=== PATIENT | female | born 1930 | race Caucasian/White ===

== ENCOUNTER 2017-11-13 05:14 | Inpatient (IN) | payer MEDICARE, MEDICAID ==
[~2017-11-13] VITALS: Ht 160 cm; Wt 71.7 kg
[~2017-11-13 05:14] MED LIST: ASPI-605 PO; ATOR20TA PO; VALS1TAB4 PO
[2017-11-13] MEDS ORDERED: NITROGLYCERIN PACKET 1 GM PACKET TD ONE (05:30)
[2017-11-13] MEDS ORDERED: ASPIRIN 81 MG TAB.CHEW PO ONE (05:30)
[2017-11-13] MEDS ORDERED: NITROGLYCERIN PACKET 1 GM PACKET ONE (05:33)
[2017-11-13] MEDS ORDERED: ASPIRIN 81 MG TAB.CHEW ONE (05:33)
[2017-11-13 05:42] LABS: HEMATOCRIT 40 % (33-45); HEMOGLOBIN 13.4 g/dL (11.5-14.8); MEAN CORPUSCULAR HEMOGLOBIN 32 PG (26.0-33.0); MEAN CORPUSCULAR HGB CONC 33 g/dl (31.0-36.0); MEAN CORPUSCULAR VOLUME 95 fL (82-100); PLATELET COUNT (AUTO) 173 /CMM (150-450); RDW COEFFICIENT OF VARIATION 15.2 (11.5-15.0); RED BLOOD CELL COUNT(AUTO) 4.24 MIL/uL (4.0-5.2)
[2017-11-13 05:56] LABS: CALCIUM, SERUM 9.6 mg/dL (8.5-10.1); CARBON DIOXIDE 28 mmol/L (21-32); CHLORIDE 102 mmol/L (98-107); CREATININE 1.1 mg/dL (0.6-1.3); GLUCOSE 121 mg/dL (74-106); POTASSIUM 3.7 mmol/L (3.5-5.1); SODIUM SERUM 139 mmol/L (136-145); UREA NITROGEN, BLOOD 28 mg/dL (7-18)
[2017-11-13 06:00] LABS: EOSINOPHILS % (MANUAL) 4 % (0-4); LYMPHOCYTES % (MANUAL) 38 % (16-48); MONOCYTES % (MANUAL) 7 % (0-11.0); NEUTROPHILS % (MANUAL) 51 (42-76)
[2017-11-13] MEDS ORDERED: IV NS 0.9% 500 ML BAG IV ONE (06:00)
[2017-11-13 06:03] LABS: TROPONIN I 0.376 ng/mL (0.00-0.056)
[2017-11-13 06:09] LABS: ALANINE AMINOTRANSFERASE 25 U/L (12-78); ALBUMIN 3.2 g/dL (3.4-5.0); ALKALINE PHOSPHATASE 65 U/L (46-116); ASPARTATE AMINOTRANSFERASE 18 U/L (15-37); B-TYPE NATRIURETIC PEPTIDE 1048 PG/ML (0-125); BILIRUBIN,DIRECT 0.1 mg/dL (0.0-0.2); BILIRUBIN,TOTAL 0.3 mg/dL (0.2-1.0)
[2017-11-13] MEDS ORDERED: CT SWABBABLE VALVE TRANS SET 1 EA INFUS.SET MC ONE (06:36)
[2017-11-13] MEDS ORDERED: IOHEXOL-350 100 ML VIAL IV ONE (06:36)
[2017-11-13] MEDS ORDERED: IV NS 0.9% 250 ML IV ONE (06:36)
[2017-11-13] MEDS ORDERED: ALLO100T PO (07:48)
[2017-11-13] MEDS ORDERED: MAGNESIUM HYDROXIDE 30 ML UDC PO PRN (09:00)
[2017-11-13] MEDS ORDERED: MAG HYDROX/AL HYDROX/SIMETH 30 ML UDC PO PRN (09:00)
[2017-11-13] MEDS ORDERED: ALLOPURINOL 100 MG TABLET PO SCH (09:00)
[2017-11-13] MEDS ORDERED: HYDROCHLOROTHIAZIDE 25 MG TABLET PO SCH (09:00)
[2017-11-13] MEDS ORDERED: NITROGLYCERIN 0.4 MG/TAB BOTTLE SL ONE (09:00)
[2017-11-13] MEDS ORDERED: ONDANSETRON HCL/PF 4 MG/2 ML VIAL IVP PRN (09:00)
[2017-11-13] MEDS ORDERED: HYDROCODONE/APAP 5/325MG 1 EACH TABLET PO PRN (09:00)
[2017-11-13] MEDS ORDERED: ACETAMINOPHEN 325 MG TABLET PO PRN (09:00)
[2017-11-13] MEDS ORDERED: VALSARTAN 80 MG TABLET PO SCH (09:00)
[2017-11-13] MEDS ORDERED: ASPIRIN 81 MG TAB.CHEW PO SCH (09:00)
[2017-11-13] MEDS ORDERED: MORPHINE SULFATE INJ 4 MG/ML DISP.SYRIN IV PRN (12:00)
[2017-11-13] MEDS ORDERED: ENOXAPARIN SODIUM 80 MG/0.8 ML DISP.SYRIN SQ ONE (15:00)
[2017-11-13 16:00] VITALS: BP 112/67
[2017-11-13 20:00] VITALS: BP 104/63
[2017-11-13] MEDS: METOPROLOL TARTRATE 25 MG TABLET PO SCH (21:00)
[2017-11-13] MEDS ORDERED: ATORVASTATIN 10 MG TABLET PO SCH (22:00)
[2017-11-13] MEDS ORDERED: TEMAZEPAM 15 MG CAPSULE PO PRN (22:00)
[2017-11-14] VITALS: BP 110/67
[2017-11-14 04:00] VITALS: BP 101/50
[2017-11-14 07:01] LABS: BASOPHILS % (AUTO) 0.4 % (0.0-2.0); EOSINOPHILS # (AUTO) 0.2 /CMM (0.0-0.7); EOSINOPHILS % (AUTO) 3.5 % (0.0-6.0); HEMATOCRIT 33 % (33-45); HEMOGLOBIN 11.2 g/dL (11.5-14.8); LYMPHOCYTES # (AUTO) 1.9 /CMM (0.8-4.8); LYMPHOCYTES % (AUTO) 38.1 % (20.0-44.0); MEAN CORPUSCULAR HEMOGLOBIN 32 PG (26.0-33.0); MEAN CORPUSCULAR HGB CONC 34 g/dl (31.0-36.0); MEAN CORPUSCULAR VOLUME 95 fL (82-100); MONOCYTES # (AUTO) 0.4 /CMM (0.1-1.30); MONOCYTES % (AUTO) 8.2 % (2.0-12.0); NEUTROPHILS # (AUTO) 2.5 /CMM (1.8-8.9); NEUTROPHILS % (AUTO) 49.8 % (43.0-81.0); PLATELET COUNT (AUTO) 157 /CMM (150-450); RDW COEFFICIENT OF VARIATION 14.9 (11.5-15.0); RED BLOOD CELL COUNT(AUTO) 3.48 MIL/uL (4.0-5.2); WHITE BLOOD COUNT (AUTO) 5.1 K/uL (4.3-11.0)
[2017-11-14 07:17] LABS: CALCIUM, SERUM 8.6 mg/dL (8.5-10.1); CARBON DIOXIDE 29 mmol/L (21-32); CHLORIDE 105 mmol/L (98-107); CREATININE 0.9 mg/dL (0.6-1.3); GLUCOSE 95 mg/dL (74-106); PHOSPHORUS 3.8 mg/dL (2.5-4.9); SODIUM SERUM 140 mmol/L (136-145); UREA NITROGEN, BLOOD 23 mg/dL (7-18)
[2017-11-14 07:22] LABS: CHOLESTEROL 135 mg/dL (<200); HDL CHOLESTEROL 45 mg/dL (40-60); LDL 75 mg/dL (0-99); THYROID STIMULATING HORMONE 3.365 uIU/mL (0.358-3.74); TRIGLYCERIDES 94 mg/dL (30-150)
[2017-11-14] MEDS ORDERED: PANTOPRAZOLE 40 MG TABLET.DR PO SCH (07:30)
[2017-11-14 08:00] VITALS: BP 121/74
[2017-11-14] MEDS ORDERED: ENOXAPARIN SODIUM 40 MG/0.4 ML DISP.SYRIN SQ SCH (09:00)
[2017-11-14] MEDS ORDERED: VALSARTAN 80 MG TABLET PO SCH (09:00)
[2017-11-14] MEDS: METOPROLOL TARTRATE 25 MG TABLET PO SCH (09:07)
[2017-11-14 09:08] VITALS: BP 133/68
[2017-11-14 09:55] LABS: THYROID STIMULATING HORMONE 3.207 uIU/mL (0.358-3.74)
[2017-11-15 14:20] LABS: *SPE ALBUMIN 3.1 g/dL (2.9-4.4); *SPE ALPHA-1-GLOBULIN 0.3 g/dL (0.0-0.4); *SPE ALPHA-2-GLOBULIN 0.7 g/dL (0.4-1.0); *SPE GLOBULIN, TOTAL 3.1 g/dL (2.2-3.9); *SPE M-SPIKE 0.5 g/dL (Not Observed); *SPEGAMMA GLOBULIN 1.1 g/dL (0.4-1.8)
== END 2017-11-14 13:31 | disposition home or self-care (01) | DRG 280 ==
LOC: ER 05:15 → TELE 11:23 → MED 11-14 08:56
PROVIDERS: ADMIT Nurse Practitioner Acute Care; ATTEND Nurse Practitioner Acute Care
DX: I21.4 Non-ST elevation (NSTEMI) myocardial infarction (principal); I50.33 Acute on chronic diastolic (congestive) heart failure; E11.65 Type 2 diabetes mellitus with hyperglycemia; I27.20 Pulmonary hypertension, unspecified; I11.0 Hypertensive heart disease with heart failure; I35.0 Nonrheumatic aortic (valve) stenosis; Z79.82 Long term (current) use of aspirin; Z79.899 Other long term (current) drug therapy; E78.5 Hyperlipidemia, unspecified; M10.9 Gout, unspecified; K27.9 Peptic ulcer, site unspecified, unspecified as acute or chronic, without hemorrhage or perforation; K21.9 Gastro-esophageal reflux disease without esophagitis; I70.0 Atherosclerosis of aorta; K44.9 Diaphragmatic hernia without obstruction or gangrene; J43.9 Emphysema, unspecified; I48.0 Paroxysmal atrial fibrillation; R91.1 Solitary pulmonary nodule; K57.30 Diverticulosis of large intestine without perforation or abscess without bleeding; E66.9 Obesity, unspecified
CPT/HCPCS: 36415; 71045-TC; 80048-TC; 80061-TC; 80076-TC; 82728-TC; 83540-TC; 83735-TC; 83880; 84100-TC; 84155; 84165; 84439-TC; 84443-TC; 84484-TC; 85025-TC; 87081-TC; A4606; J1650; J7040; J7050; Q9967; Z7610

== ENCOUNTER 2019-06-25 11:29 | Emergency (ER) | payer MEDICARE, MEDICAID ==
[~2019-06-25] VITALS: Ht 167.6 cm; Wt 87.5 kg
[~2019-06-25 11:29] MED LIST changes: +ALLO100T PO
--- NOTE | 2019-06-25 11:36 | NUR ---
"BIB FAMILY, DIARRHEA X 5 DAYS, TOOK IMODIUM W/ MINIMAL RELIEF" pt aaox4, -sob, nad noted, vss, pt on monitor, pending md gibson
[2019-06-25 11:52] LABS: BASOPHILS % (AUTO) 0.4 % (0.0-2.0); EOSINOPHILS % (AUTO) 1.2 % (0.0-6.0); HEMATOCRIT 37 % (33-45); LYMPHOCYTES # (AUTO) 1.1 /CMM (0.8-4.8); LYMPHOCYTES % (AUTO) 21.5 % (20.0-44.0); MEAN CORPUSCULAR HGB CONC 33 g/dl (31.0-36.0); MEAN CORPUSCULAR VOLUME 100 fL (82-100); MONOCYTES # (AUTO) 0.7 /CMM (0.1-1.30); NEUTROPHILS # (AUTO) 3.4 /CMM (1.8-8.9); NEUTROPHILS % (AUTO) 63.9 % (43.0-81.0); PLATELET COUNT (AUTO) 207 /CMM (150-450); RED BLOOD CELL COUNT(AUTO) 3.65 MIL/uL (4.0-5.2); WHITE BLOOD COUNT (AUTO) 5.2 K/uL (4.3-11.0)
--- NOTE | 2019-06-25 11:53 | NUR ---
urine collected and sent to lab
[2019-06-25 11:58] LABS: APPEARANCE,URINE Clear (CLEAR); BILIRUBIN,URINE SMALL (NEGATIVE); BLOOD, URINE Negative Ery/uL (NEGATIVE); COLOR,URINE Yellow (YELLOW); CREATININE 1.2 mg/dL (0.6-1.3); KETONES,URINE Negative (NEGATIVE); LEUKOCYTE ESTERASE ,URINE Small (NEGATIVE); NITRITE, URINE Negative (NEGATIVE); POTASSIUM 3.8 mmol/L (3.5-5.1); PROTEIN,URINE Trace mg/dl (NEGATIVE); UGLUCOSE Negative (NEGATIVE); UROBILINOGEN,URINE 0.2 EU/dL (0.2)
[2019-06-25 12:00] VITALS: BP 121/60
[2019-06-25 12:02] LABS: BACTERIA,URINE Moderate /HPF (None Seen); RBC,URINE 0-2 /HPF (0-2); SQUAMOUS EPITHELIAL CELL,UR Few /HPF (None Seen)
[2019-06-25 12:04] LABS: ALBUMIN 3.3 g/dL (3.4-5.0); BILIRUBIN,DIRECT 0.1 mg/dL (0.0-0.2); BILIRUBIN,TOTAL 0.5 mg/dL (0.2-1.0); TOTAL PROTEIN, SERUM 7.5 g/dL (6.4-8.2)
--- NOTE | 2019-06-25 12:38 | NUR ---
Patient discharged to home in stable condition. Written and verbal after care instructions given. Patient verbalizes understanding of instruction.
== END 2019-06-25 12:40 | disposition home or self-care (01) ==
LOC: ER 11:33
DX: R19.7 Diarrhea, unspecified (principal); I10 Essential (primary) hypertension; Z95.818 Presence of other cardiac implants and grafts; Z79.82 Long term (current) use of aspirin; Z79.899 Other long term (current) drug therapy
CPT/HCPCS: 36415; 80048-TC; 80076-TC; 81000-TC; 85025-TC; 87086-TC

== ENCOUNTER 2020-11-02 21:24 | Inpatient (IN) | payer MEDICARE, OTHER ==
[~2020-11-02] VITALS: Ht 167.6 cm; Wt 94.0 kg
[2020-11-02 21:50] LABS: BASOPHILS % (AUTO) 0.6 % (0.0-2.0); EOSINOPHILS % (AUTO) 1.9 % (0.0-6.0); HEMATOCRIT 35 % (33-45); HEMOGLOBIN 11.3 g/dL (11.5-14.8); LYMPHOCYTES # (AUTO) 1.5 /CMM (0.8-4.8); LYMPHOCYTES % (AUTO) 21.1 % (20.0-44.0); MEAN CORPUSCULAR HGB CONC 32 g/dl (31.0-36.0); MEAN CORPUSCULAR VOLUME 99 fL (82-100); MONOCYTES # (AUTO) 0.7 /CMM (0.1-1.30); MONOCYTES % (AUTO) 9.5 % (2.0-12.0); NEUTROPHILS # (AUTO) 4.8 /CMM (1.8-8.9); NEUTROPHILS % (AUTO) 66.9 % (43.0-81.0); PLATELET COUNT (AUTO) 224 /CMM (150-450); RED BLOOD CELL COUNT(AUTO) 3.52 MIL/uL (4.0-5.2); WHITE BLOOD COUNT (AUTO) 7.1 K/uL (4.3-11.0)
--- NOTE | 2020-11-02 21:52 | NUR ---
BIBRA FROM HOME TO ER BED 7. AAOX4. NOT IN RESP DISTRESS. BROUGHT IN FOR R HIP RADIATING DOWN TO THIGH AND R KNEE PAIN S/P TRIP AND FALL. PT IS NOTED WITH +SHORTENING AND +EXTERNAL ROTATION ON THE RIGHT LEG. BILAT PEDAL PULSES ARE APPRECIATED. COLOR AND TEMP IS EQUAL ON BILAT LOWER EXT. AWAITING MD FOR EVAL. ORDERS RECEIVED, NOTED AND CARRIED OUT. IV LINE ESTABLISHED IN THE L AC 18G. BLOOD DRAWN AND SENT TO LAB
[2020-11-02 22:02] LABS: CALCIUM, SERUM 9.7 mg/dL (8.5-10.1); CARBON DIOXIDE 28 mmol/L (21-32); CHLORIDE 106 mmol/L (98-107); CREATININE 1.4 mg/dL (0.6-1.3); GLUCOSE 96 mg/dL (74-106); POTASSIUM 3.9 mmol/L (3.5-5.1); SODIUM SERUM 143 mmol/L (136-145); UREA NITROGEN, BLOOD 40 mg/dL (7-18)
--- NOTE | 2020-11-02 22:33 | NUR ---
called conductor/brakeman [facility] working foreman Lori [phone], Dr. lowery is curerntly speaking to dr. mclain regarding plan of care.
--- NOTE | 2020-11-02 23:03 | NUR ---
called [facility] for panel admission
[2020-11-02] MEDS ORDERED: MAG HYDROX/AL HYDROX/SIMETH 30 ML UDC PO PRN (23:30)
[2020-11-02] MEDS ORDERED: DOCUSATE SODIUM 100 MG CAPSULE PO PRN (23:30)
[2020-11-02] MEDS ORDERED: ONDANSETRON HCL/PF 4 MG/2 ML VIAL IVP PRN (23:30)
[2020-11-02] MEDS ORDERED: MORPHINE SULFATE INJ 2 MG/ML DISP.SYRIN IV PRN ×2 (23:30)
[2020-11-02] MEDS ORDERED: NITROGLYCERIN 0.4 MG/TAB BOTTLE SL PRN (23:30)
[2020-11-02] MEDS ORDERED: MORPHINE SULFATE INJ 2 MG/ML DISP.SYRIN ONE (23:32)
[2020-11-02] MEDS ORDERED: FURO-145 PO (23:50)
[2020-11-02] MEDS ORDERED: OLME1TAB16 PO (23:50)
[2020-11-02] MEDS ORDERED: METF-440 PO (23:50)
[2020-11-02] MEDS ORDERED: TEMA15CA PO (23:50)
--- NOTE | 2020-11-02 23:50 | NUR ---
REPORT GIVEN TO MATY MAYS FOR MAYO
--- NOTE | 2020-11-03 00:18 | NUR ---
per lab covid negative
--- NOTE | 2020-11-03 00:40 | NUR ---
SPINNER BOX ADMITTING NOTES RECEIVED REPORT FROM TABATHA CHARGE NURSE. PATIENT ADMITTED FROM ER, C/C OF RIGHT HIP PAIN. S/P GROUND LEVEL FALL. PATIENT AAOX4; ABLE TO MAKE SOME NEEDS KNOWN; BELARUSIAN SPEAKING. ON O2 2LPM NASAL CANNULA; TOLERATING WELL WITH NO SOB. EXTERNAL TELE MONITOR READS NSR AND HR AT 90. SKIN IS INTACT; NO BRUISING NOTED AT THIS TIME. MAINTAINED ON NPO DIET. IV #22G S/L TO LAC PATENT AND INTACT. ORIENTED PATIENT TO STAFF AND ROOM. ALL BELONGINGS ACCOUNTED FOR AND FILLED OUT BELONGINGS CHECK LIST. GAVE ADA (DAUGHTER) AND GENE (GRANDSON DPOA) UPDATE ON PATIENT. ALL SAFETY MEASURES IN PLACE; BED IN LOWEST LOCKED POSITION; SIDERAILS UPX2; CALL LIGHT WITHIN REACH, BED ALARM ON. PATIENT MEDICALLY STABLE AT THIS TIME.
--- NOTE | 2020-11-03 00:40 | NUR ---
MOVED PT TO 324-1
[2020-11-03 01:01] VITALS: BP 158/86
[2020-11-03] MEDS: PANTOPRAZOLE 40 MG VIAL IV SCH ×2 (01:19→22:29)
[2020-11-03] MEDS: HYDROMORPHONE 1 MG/1 ML DISP.SYRIN IV PRN ×4 (02:16→22:26)
--- NOTE | 2020-11-03 02:46 | NUR ---
HOE RUNNER NOTES - PAIN PATIENT C/O 06/14 RIGHT HIP PAIN. ADMINISTERED DILAUDID 2MG ORDERED. WILL CONTINUE TO MONITOR FOR PAIN.
--- NOTE | 2020-11-03 06:07 | NUR ---
PUBLIC SCHOOL TEACHER NOTES - FC KAREEM CRAFT ORDERED FOR F/C. F/C INSERTED WITH CLEAR YELLOW OUTPUT; PATENT AND INTACT. COLLECTED URINE SPECIMEN AND WAS PUT IN THE FRIDGE FOR UA TEST.
[2020-11-03 06:42] LABS: BASOPHILS % (AUTO) 0.3 % (0.0-2.0); HEMATOCRIT 32 % (33-45); HEMOGLOBIN 10.3 g/dL (11.5-14.8); LYMPHOCYTES # (AUTO) 0.8 /CMM (0.8-4.8); LYMPHOCYTES % (AUTO) 6.6 % (20.0-44.0); MEAN CORPUSCULAR HGB CONC 32 g/dl (31.0-36.0); MEAN CORPUSCULAR VOLUME 98 fL (82-100); MONOCYTES # (AUTO) 0.6 /CMM (0.1-1.30); MONOCYTES % (AUTO) 4.9 % (2.0-12.0); NEUTROPHILS # (AUTO) 10.6 /CMM (1.8-8.9); NEUTROPHILS % (AUTO) 88.2 % (43.0-81.0); PLATELET COUNT (AUTO) 200 /CMM (150-450); RED BLOOD CELL COUNT(AUTO) 3.23 MIL/uL (4.0-5.2)
--- NOTE | 2020-11-03 07:05 | NUR ---
TRANSITION OF CARE SPECIALIST CLOSING NOTES PATIENT AAOX4; ABLE TO MAKE SOME NEEDS KNOWN; FILIPINO SPEAKING. ON O2 3LPM NASAL CANNULA; TOLERATING WELL WITH NO SOB. EXTERNAL TELE MONITOR READS NSR AND HR AT 90'S. SKIN IS INTACT; NO BRUISING NOTED AT THIS TIME. MAINTAINED ON NPO DIET. IV #22G S/L TO LAC PATENT AND INTACT. F/C DRAINING CLEAR YELLOW URINE; PATENT AND INTACT. ALL SAFETY MEASURES IN PLACE; BED IN LOWEST LOCKED POSITION; SIDERAILS UPX2; CALL LIGHT WITHIN REACH, BED ALARM ON. PATIENT MEDICALLY STABLE AT THIS TIME. WILL ENDORSE MAYO TO ONCOMING MORNING RN.
[2020-11-03 07:32] LABS: CHOLESTEROL 133 mg/dL (<200); HDL CHOLESTEROL 57 mg/dL (40-60); LDL 65 mg/dL (0-99); TRIGLYCERIDES 48 mg/dL (30-150)
[2020-11-03 07:51] LABS: ALANINE AMINOTRANSFERASE 21 U/L (12-78); ALBUMIN 2.9 g/dL (3.4-5.0); ALKALINE PHOSPHATASE 75 U/L (46-116); ASPARTATE AMINOTRANSFERASE 21 U/L (15-37); BILIRUBIN,TOTAL 0.3 mg/dL (0.2-1.0); CALCIUM, SERUM 9.1 mg/dL (8.5-10.1); CARBON DIOXIDE 25 mmol/L (21-32); CHLORIDE 108 mmol/L (98-107); CREATININE 1.3 mg/dL (0.6-1.3); GLUCOSE 129 mg/dL (74-106); MAGNESIUM 1.8 mg/dL (1.8-2.4); PHOSPHORUS 3.4 mg/dL (2.5-4.9); POTASSIUM 4.7 mmol/L (3.5-5.1); SODIUM SERUM 142 mmol/L (136-145); TOTAL PROTEIN, SERUM 6.8 g/dL (6.4-8.2); UREA NITROGEN, BLOOD 36 mg/dL (7-18)
--- NOTE | 2020-11-03 07:54 | NUR ---
SUBWAREHOUSE SUPERVISOR OPENING NOTE PATIENT IS IN BED RESTING. PATIENT IS IN NO ACUTE DISTRESS. PATIENT IS ON 3L OXYGEN NC, TOLERATING WELL. NO SOB NOTED. PATIENT IS ON FLUID RESTRICTION 1.5L. PATIENT IS ON TELE MONITOR READING SR BBB 73. SAFETY PRECAUTIONS ARE IN PLACE, BED IN THE LOWEST POSITION, WITH SIDE RAILS ON, CALL LIGHT WITHIN REACH. WILL CONTINUE TO MONITOR PATIENT CLOSELY THROUGH OUT THE SHIFT.
[2020-11-03 08:19] VITALS: BP 106/69
[2020-11-03 08:42] LABS: IRON, SERUM 28 ug/dl (50-175); TOTAL IRON BINDING CAPACITY 235 ug/dl (250-450)
[2020-11-03 08:55] LABS: FERRITIN 75 ng/mL (8-388)
[2020-11-03] MEDS: ASPIRIN EC 81 MG TABLET.DR PO SCH (09:00)
[2020-11-03] MEDS ORDERED: HYDROCHLOROTHIAZIDE 25 MG TABLET PO SCH (09:00)
[2020-11-03] MEDS: ALLOPURINOL 100 MG TABLET PO SCH (09:00)
[2020-11-03] MEDS: VALSARTAN 80 MG TABLET PO SCH (09:00)
[2020-11-03] MEDS ORDERED: ASPIRIN 81 MG TAB.CHEW PO SCH (09:00)
[2020-11-03] MEDS: METFORMIN 500 MG TABLET PO SCH ×2 (09:00→17:00)
[2020-11-03] MEDS: ATORVASTATIN 10 MG TABLET PO SCH (09:00)
[2020-11-03] MEDS: IV NS 0.9% 1,000 ML IV PRN (10:29)
[2020-11-03 12:12] VITALS: BP 100/52
[2020-11-03] MEDS ORDERED: CHOL100062 PO (14:13)
[2020-11-03] MEDS ORDERED: SPIR25TA6 PO (14:13)
[2020-11-03] MEDS ORDERED: OMEP20CA15 PO (14:13)
[2020-11-03 16:18] LABS: BILIRUBIN,URINE NEGATIVE (NEGATIVE); COLOR,URINE YELLOW (YELLOW); LEUKOCYTE ESTERASE ,URINE NEGATIVE (NEGATIVE); NITRITE, URINE NEGATIVE (NEGATIVE); PROTEIN,URINE NEGATIVE (NEGATIVE); UGLUCOSE NEGATIVE (NEGATIVE); UROBILINOGEN,URINE 0.2 EU/dL (0.2)
[2020-11-03 16:27] VITALS: BP 128/57
--- NOTE | 2020-11-03 17:44 | NUR ---
SUPERVISOR HANGING AND TRIMMING NOTE PATIENTS BLOOD SUGAR IS 86, PATIENT WAS NPO THE WHOLE DAY. METFORMIN WAS NOT ADMINISTERED.
--- NOTE | 2020-11-03 17:45 | NUR ---
SORT SUPERVISOR NOTE PATIENT HAD AN ORTHOPEDIC CONSULTATION. PER PATIENT HAS A FEMORAL NECK HIP FRACTURE, AND WILL NEED A PARTIAL HIP REPLACEMENT SURGERY. PATIENT AND PATIENTS FAMILY WANT SURGERY TO BE DONE IN [facility]. DR ÁLVAREZ AND DR. VILLAFUERTE ARE AWARE OF PATIENTS PREFERENCE.
--- NOTE | 2020-11-03 19:35 | NUR ---
RN OPENING NOTES RECEIVED PT IN BED. A/O X4 BENINESE SPEAKING, MINIMAL YI. RN ADVANCED UTILIZED, ABLE TO MAKE NEEDS KNOWN. PT IS ON 3L OF O2 VIA NC, TOLERATING WELL SATURATION 94% AT THIS TIME. NO SOB NO RESP DISTRESS NOTED. ON TELE MONITORING PRESENTS WITH NSR HR OF 85. PT REPORTS PAIN 3/10, TOLERABLE AT THIS TIME. PAIN FROM RIGHT HIP/LEG. VERBALIZED PT WILL REQUEST PAIN MEDICATION WHEN NEEDED. PT IV LINE FLUSHED, NO S/S OF INFILTRATION NOTED. SAFETY MEASURES IN PLACE, HOB ELEVATED. NEEDS ATTENDED. SIDE RAILS UP X2, BED LOCKED IN LOWEST POSITION. CALL LIGHT WITHIN REACH. WILL CONT TO MONITOR CLOSELY.
--- NOTE | 2020-11-03 19:58 | NUR ---
HOGSHEAD OPENER CLOSING NOTE PATIENT IS IN BED RESTING. PATIENT IS IN NO ACUTE DISTRESS. PATIENT IS ON 3L OXYGEN NC, TOLERATING WELL. NO SOB NOTED. PATIENT IS ON FLUID RESTRICTION 1.5L. PATIENT IS ON TELE MONITOR READING SR BBB 77. PATIENT HAS CLARK CATHETER IN PLACE WITH URINE OUTPUT OF 800ML. SAFETY PRECAUTIONS ARE IN PLACE, BED IN THE LOWEST POSITION, WITH SIDE RAILS ON, CALL LIGHT WITHIN REACH. ENDORSE PATIENT TO RING STAMPER NURSE FOR MAYO.
--- NOTE | 2020-11-03 21:44 | NUR ---
REPORT GIVEN TO RAINA RUTLEDGE FOR CONTINUATION OF CARE.
[2020-11-04] VITALS: BP 112/53
[2020-11-04] MEDS: ACETAMINOPHEN 325 MG TABLET PO PRN (00:51)
[2020-11-04 04:00] VITALS: BP 110/56
[2020-11-04 04:34] VITALS: BP 126/48
[2020-11-04] MEDS: HYDROMORPHONE 1 MG/1 ML DISP.SYRIN IV PRN ×5 (06:00→19:48)
[2020-11-04 06:33] LABS: BASOPHILS # (AUTO) 0.1 /CMM (0.0-0.2); BASOPHILS % (AUTO) 0.7 % (0.0-2.0); EOSINOPHILS % (AUTO) 1.5 % (0.0-6.0); HEMATOCRIT 31 % (33-45); HEMOGLOBIN 10.2 g/dL (11.5-14.8); LYMPHOCYTES # (AUTO) 1.2 /CMM (0.8-4.8); LYMPHOCYTES % (AUTO) 11.7 % (20.0-44.0); MEAN CORPUSCULAR HGB CONC 33 g/dl (31.0-36.0); MEAN CORPUSCULAR VOLUME 99 fL (82-100); MONOCYTES # (AUTO) 0.7 /CMM (0.1-1.30); MONOCYTES % (AUTO) 6.9 % (2.0-12.0); NEUTROPHILS # (AUTO) 8.2 /CMM (1.8-8.9); NEUTROPHILS % (AUTO) 79.2 % (43.0-81.0); PLATELET COUNT (AUTO) 170 /CMM (150-450); RED BLOOD CELL COUNT(AUTO) 3.11 MIL/uL (4.0-5.2); WHITE BLOOD COUNT (AUTO) 10.4 K/uL (4.3-11.0)
[2020-11-04 07:26] LABS: ALBUMIN 2.9 g/dL (3.4-5.0); BILIRUBIN,TOTAL 0.8 mg/dL (0.2-1.0); CALCIUM, SERUM 9.2 mg/dL (8.5-10.1); CREATININE 1.3 mg/dL (0.6-1.3); MAGNESIUM 1.9 mg/dL (1.8-2.4); PHOSPHORUS 3.3 mg/dL (2.5-4.9); POTASSIUM 4.6 mmol/L (3.5-5.1); TOTAL PROTEIN, SERUM 7.1 g/dL (6.4-8.2)
--- NOTE | 2020-11-04 07:54 | NUR ---
RESIDENTIAL CONSTRUCTION INSTRUCTOR OPENING NOTE RECEIVED PT IN BED, RESTING, AROUSABLE AND RESPONSIVE. PT IS A/O X 4, TOGOLESE SPEAKING BUT CAN UNDERSTAND BASIC THAI. PT IS ON NASAL CANNULA 3L WITH NO C/O SOB AND NO S/SX OF RESPIRATORY DISTRESS NOTED. PT'S SHEET METAL FABRICATOR SHOWS NSR IN 80'S WITH NO C/O CARDIAC DISTRESS NOTED. IV ACCESS IS ON LEFT AC G#22, PATENT, INTACT AND FLUSHING WELL WITH NO S/SX OF IRRITATION, INFILTRATION OR INFECTION. SAFETY MEASURES IN PLACE: BED IN LOWEST POSITION AND LOCKED WITH BOTH UPPER SIDE RAILS UP X2. CALL LIGHT PLACED WITHIN REACH. WILL CONTINUE TO MONITOR.
[2020-11-04 08:00] VITALS: BP 143/71
[2020-11-04] MEDS: ASPIRIN EC 81 MG TABLET.DR PO SCH (08:32)
[2020-11-04] MEDS: VALSARTAN 80 MG TABLET PO SCH (08:32)
[2020-11-04] MEDS: METFORMIN 500 MG TABLET PO SCH ×3 (08:32→17:24)
[2020-11-04] MEDS: ATORVASTATIN 10 MG TABLET PO SCH (08:33)
[2020-11-04] MEDS: ALLOPURINOL 100 MG TABLET PO SCH (08:33)
[2020-11-04] MEDS: PANTOPRAZOLE 40 MG TABLET.DR PO SCH (09:05)
[2020-11-04] MEDS: HEPARIN SODIUM, PORCINE 5000 UNITS/1 ML VIAL SQ SCH ×2 (09:06→20:39)
--- NOTE | 2020-11-04 13:26 | NUR ---
RN NOTES PT C/O THROBBING, ACHING AND SHARP PAIN OR RIGHT HIP .8/10 SCALE. PRN DILAUDID 1MG/ML IVP ADMINISTERED AT 1322. WILL CONTINUE TO MONITOR AND REASSESS PT.
[2020-11-04] MEDS: IV NS 0.9% 1,000 ML IV PRN ×2 (13:29→23:48)
--- NOTE | 2020-11-04 13:32 | NUR ---
RN NOTES PT NOTED WITH DISLODGED IV ON LAC WITH MINIMAL BLEEDING NOTED. DRY PRESSURE DRESSING APPLIED AT SITE. NEW IV ACCESS INSERTED TO LEFT HAND G#24, TAPED AND DATED. WILL CONTINUE TO MONITOR.
[2020-11-04] MEDS: SOD FERRIC GLUC 125 MG in IV NS 0.9% 100 ML IV SCH (14:12)
--- NOTE | 2020-11-04 18:51 | NUR ---
INTERNET MARKETING INTERN CLOSING NOTE PT REMAINS IN BED, RESTING, AROUSABLE AND RESPONSIVE. PT IS A/O X 4. PT'S NASAL CANNULA IS ON 3L WITH NO SS/X SOB OR RESPIRATORY DISTRESS NOTED. PT'S TELE MONITOR SHOWS SINUS TACHYCARDIA WITH BBB AT 112 BPM WITH NO S/SX CARDIAC DISTRESS NOTED. IV ACCESS LEFT AC G#22 REMAINS PATENT, INTACT AND FLUSHING WELL WITH NO S/SX OF IRRITATION, INFILTRATION OR INFECTION. SAFETY MEASURES MAINTAINED: BED IN LOWEST POSITION AND LOCKED WITH BOTH UPPER SIDE RAILS UP X2. CALL LIGHT PLACED WITHIN REACH. WILL ENDORSE TO HEALTH CARE ATTORNEY NURSE.
--- NOTE | 2020-11-04 19:30 | NUR ---
TELE/RN OPENING NOTE RECEIVED PATIENT RESTING IN BED. AWAKE, ALERT AND ORIENTED X 4. ABLE TO MAKE NEEDS KNOWN. NO COMPLAINTS OF PAIN AT THIS TIME. CONTINUES ON 3L O2 VIA NC WITH NO SIGNS OR SYMPTOMS OF RESPIRATORY DISTRESS NOTED. IV ACCESS TO LEFT HAND INTACT AND PATENT. CONTINUES WITH NS @ 100ML/HR. PATIENT REMAINS NPO. CALL LIGHT WITHIN REACH. ASPIRATION, FALL AND SAFETY PRECAUTIONS MAINTAINED. WILL CONTINUE TO MONITOR.
[2020-11-04 20:00] VITALS: BP 106/33
[2020-11-05] VITALS: BP 113/59
--- NOTE | 2020-11-05 00:30 | NUR ---
TELE/RN NOTE PATIENT WITH C/O RIGHT HIP PAIN 04/14. GIVEN PRN DILAUDID AND POSITION CHANGE WITH PENDING EFFECT. WILL CONTINUE TO MONITOR.
[2020-11-05] MEDS: HYDROMORPHONE 1 MG/1 ML DISP.SYRIN IV PRN ×4 (00:33→12:23)
--- NOTE | 2020-11-05 03:30 | NUR ---
TELE/RN NOTE SPOKE WITH MICHELLE (DAUGHTER) REGARDING PATIENTS STATUS AND TRANSFER STATUS. STILL WAITING FOR A BED FROM [facility]. TOLD MICHELLE WE WOULD CALL HER WHEN WE HEAR FROM [facility].
[2020-11-05 04:00] VITALS: BP 104/48
--- NOTE | 2020-11-05 06:15 | NUR ---
TELE/RN CLOSING NOTE PATIENT CURRENTLY RESTING IN BED. ALERT AND ORIENTED X 3. ABLE TO MAKE NEEDS KNOWN. COMPLAINTS OF RIGHT HIP PAIN THIS SHIFT - GIVEN PRN DILAUDID WITH GOOD EFFECT. CONTINUES ON 3L VIA NC WITH O2 SATS 93-95%. NO SIGNS OR SYMPTOMS OF RESPIRATORY DISTRESS NOTED. TELE MONITOR READING SINUS TACHY WITH BBB WITH HR 113. NO SIGNS OR SYMPTOMS OF DISTRESS NOTED. CLARK CATHETER INTACT AND PATENT DRAINING SAMMY COLORED URINE. CONTINUES ON IV NS @ 100ML/HR. CALL LIGHT WITHIN REACH. ASPIRATION, FALL AND SAFETY PRECAUTIONS MAINTAINED. WILL ENDORSE PLAN OF CARE TO ONCOMING SHIFT.
[2020-11-05 07:16] LABS: BASOPHILS % (AUTO) 0.4 % (0.0-2.0); EOSINOPHILS % (AUTO) 0.6 % (0.0-6.0); HEMATOCRIT 28 % (33-45); HEMOGLOBIN 9.3 g/dL (11.5-14.8); LYMPHOCYTES # (AUTO) 0.8 /CMM (0.8-4.8); LYMPHOCYTES % (AUTO) 9.8 % (20.0-44.0); MEAN CORPUSCULAR HGB CONC 33 g/dl (31.0-36.0); MEAN CORPUSCULAR VOLUME 100 fL (82-100); MONOCYTES # (AUTO) 0.6 /CMM (0.1-1.30); MONOCYTES % (AUTO) 7.3 % (2.0-12.0); NEUTROPHILS # (AUTO) 6.9 /CMM (1.8-8.9); NEUTROPHILS % (AUTO) 81.9 % (43.0-81.0); PLATELET COUNT (AUTO) 167 /CMM (150-450); RED BLOOD CELL COUNT(AUTO) 2.84 MIL/uL (4.0-5.2); WHITE BLOOD COUNT (AUTO) 8.5 K/uL (4.3-11.0)
[2020-11-05 07:25] LABS: CALCIUM, SERUM 8.8 mg/dL (8.5-10.1); CARBON DIOXIDE 27 mmol/L (21-32); CHLORIDE 109 mmol/L (98-107); CREATININE 1.4 mg/dL (0.6-1.3); GLUCOSE 89 mg/dL (74-106); POTASSIUM 4.6 mmol/L (3.5-5.1); SODIUM SERUM 141 mmol/L (136-145); UREA NITROGEN, BLOOD 35 mg/dL (7-18)
[2020-11-05 08:00] VITALS: BP 126/44
--- NOTE | 2020-11-05 08:00 | NUR ---
TELE/RN OPENING NOTE RECEIVED PATIENT LYING IN BED. AWAKE, ALERT AND ORIENTED X 2, PT SEEMS TO HAVE SOME CONFUSION. KITTITIAN SPEAKING ONLY. ABLE TO REQUEST WATER AND PAIN MEDS. PT IS NPO SO NO WATER GIVEN. COMPLAINING OF RIGHT HIP PAIN 04/14. PT REQUESTING SURGERY ANTONIA. 3L O2 VIA NC WITH NO SIGNS OR SYMPTOMS OF RESPIRATORY DISTRESS NOTED. IV ACCESS TO LEFT HAND INTACT AND PATENT RUNNING NS @ 100ML/HR. PATIENT REMAINS NPO. CALL LIGHT WITHIN REACH. ASPIRATION, FALL AND SAFETY PRECAUTIONS MAINTAINED. WILL CONTINUE TO MONITOR.
[2020-11-05] MEDS: ASPIRIN EC 81 MG TABLET.DR PO SCH (09:00)
[2020-11-05] MEDS: ALLOPURINOL 100 MG TABLET PO SCH (09:00)
[2020-11-05] MEDS: ATORVASTATIN 10 MG TABLET PO SCH (09:00)
[2020-11-05] MEDS: PANTOPRAZOLE 40 MG TABLET.DR PO SCH (09:00)
[2020-11-05] MEDS: HEPARIN SODIUM, PORCINE 5000 UNITS/1 ML VIAL SQ SCH ×2 (09:00→21:20)
[2020-11-05] MEDS: VALSARTAN 80 MG TABLET PO SCH (09:00)
[2020-11-05] MEDS: METFORMIN 500 MG TABLET PO SCH ×2 (09:00→17:13)
--- NOTE | 2020-11-05 09:00 | NUR ---
HELD HEPARIN DUE TO PENDING SX
[2020-11-05] MEDS: IV NS 0.9% 1,000 ML IV PRN (10:56)
[2020-11-05] MEDS ORDERED: ANESTHESIA TRAY IN PYXIS 1 EA TRAY MC ONE (12:53)
[2020-11-05] MEDS ORDERED: BUPIVACAINE 0.5 % PF 150 MG/30 ML VIAL ONE (13:00)
[2020-11-05] MEDS ORDERED: BACITRACIN 50000 UNITS/VIAL ONE (13:01)
--- NOTE | 2020-11-05 14:30 | NUR ---
TUBE MACHINE OPERATOR NOTE PT TAKEN TO OR FOR 1500 SURGERY. VITALS STABLE. LAST PAIN MED GIVEN @ 1200 - DILAUD 1MG. PT IS STILL CONFUSED.
[2020-11-05] MEDS ORDERED: FENTANYL PF 100MCG/2ML AMPUL ONE (14:55)
[2020-11-05] MEDS ORDERED: ROCURONIUM BROMIDE 50 MG/5 ML ONE (14:55)
[2020-11-05] MEDS ORDERED: TRANEXAMIC ACID 1,000 MG in IV NS 0.9% 50 ML IV ONE (15:00)
[2020-11-05] MEDS: SOD FERRIC GLUC 125 MG in IV NS 0.9% 100 ML IV SCH (15:42)
--- NOTE | 2020-11-05 15:51 | NUR ---
EMERGENCY DETAIL DRIVER NOTE PT RETURNED TO ROOM @ 1530 DUE TO CANCELLED SURGERY. PT O2 SAT KEPT FALLING TO 85-86 AND NOT SAFE TO DO PROCEDURE. WILL TRY TO SCHEDULE FOR TOMORROW.
--- NOTE | 2020-11-05 15:55 | NUR ---
NOTIFIED DR PIÑA AND FAMILY MEMBERS,GRANDSONS: ADA (DAUGHTER) AND GRANDSONS,GENE CRICKET AND GENE BRENDA FOR THE CANCELLATION OF THE SX.
[2020-11-05 16:00] VITALS: BP 144/85
[2020-11-05 16:31] LABS: BASOPHILS # (AUTO) 0.1 /CMM (0.0-0.2); BASOPHILS % (AUTO) 0.8 % (0.0-2.0); EOSINOPHILS % (AUTO) 0.2 % (0.0-6.0); HEMATOCRIT 29 % (33-45); HEMOGLOBIN 9.4 g/dL (11.5-14.8); LYMPHOCYTES # (AUTO) 0.7 /CMM (0.8-4.8); LYMPHOCYTES % (AUTO) 8.1 % (20.0-44.0); MEAN CORPUSCULAR HGB CONC 32 g/dl (31.0-36.0); MEAN CORPUSCULAR VOLUME 100 fL (82-100); MONOCYTES # (AUTO) 0.6 /CMM (0.1-1.30); MONOCYTES % (AUTO) 7.2 % (2.0-12.0); NEUTROPHILS # (AUTO) 7.3 /CMM (1.8-8.9); NEUTROPHILS % (AUTO) 83.7 % (43.0-81.0); PLATELET COUNT (AUTO) 172 /CMM (150-450); RED BLOOD CELL COUNT(AUTO) 2.91 MIL/uL (4.0-5.2); WHITE BLOOD COUNT (AUTO) 8.8 K/uL (4.3-11.0)
[2020-11-05 16:40] LABS: CALCIUM, SERUM 9.1 mg/dL (8.5-10.1); CARBON DIOXIDE 26 mmol/L (21-32); CHLORIDE 110 mmol/L (98-107); CREATININE 1.4 mg/dL (0.6-1.3); GLUCOSE 126 mg/dL (74-106); POTASSIUM 4.9 mmol/L (3.5-5.1); SODIUM SERUM 143 mmol/L (136-145); UREA NITROGEN, BLOOD 36 mg/dL (7-18)
[2020-11-05] MEDS: HYDROCODONE/APAP 10/325MG TABLET PO PRN ×2 (17:13→21:31)
--- NOTE | 2020-11-05 17:41 | NUR ---
PT C/O NOT HAVING BM FOR [address] PIÑA WITH ORDERS FOR DULCOLAX SUPP PRN DAILY.
[2020-11-05] MEDS ORDERED: BISACODYL SUPP (10 MG) 10 MG/SUPP.RECT SUPP.RECT RC PRN (18:00)
[2020-11-05 18:57] LABS: BILIRUBIN,URINE SMALL (NEGATIVE); COLOR,URINE YELLOW (YELLOW); LEUKOCYTE ESTERASE ,URINE NEGATIVE (NEGATIVE); NITRITE, URINE NEGATIVE (NEGATIVE); PROTEIN,URINE TRACE mg/dl (NEGATIVE); UGLUCOSE NEGATIVE (NEGATIVE)
--- NOTE | 2020-11-05 18:59 | NUR ---
PRESIDENT & CEO [employer] CLOSING NOTE PATIENT CURRENTLY RESTING IN BED. ALERT AND ORIENTED X 3. ABLE TO MAKE SIMPLE NEEDS KNOWN. COMPLAINTS OF RIGHT HIP PAIN THIS SHIFT - PT ASKED TO HAVE SURGERY HERE INSTEAD OF WAITING FOR [facility]. PT WAS TAKEN TO OR FOR SURGERY BUT WAS BROUGHT BACK DUE TO DECREASED O2 SATS. CONTINUES ON 3L VIA NC WITH O2 SATS 93-95%. NO SIGNS OR SYMPTOMS OF RESPIRATORY DISTRESS NOTED. PT IS ON CARDIAC DIET UNTIL MIDNIGHT - NPO. WILL ENDORSE TO ONCOMING SHIFT. TELE MONITOR READING SINUS TACHY WITH BBB WITH HR 113. NO SIGNS OR SYMPTOMS OF DISTRESS NOTED. CLARK CATHETER INTACT AND PATENT DRAINING SAMMY COLORED URINE. CONTINUES ON IV NS @ 100ML/HR. CALL LIGHT WITHIN REACH. ASPIRATION, FALL AND SAFETY PRECAUTIONS MAINTAINED. WILL ENDORSE PLAN OF CARE TO ONCOMING SHIFT.
[2020-11-05 19:06] LABS: BACTERIA,URINE Few /HPF (None Seen); RBC,URINE 21-50 /HPF (0-2); SQUAMOUS EPITHELIAL CELL,UR Few /HPF (None Seen); WBC,URINE 0-2 /HPF (0-3)
[2020-11-05 19:07] LABS: COARSE GRANULAR CASTS,URINE Few /LPF (None Seen)
--- NOTE | 2020-11-05 19:35 | NUR ---
RN NOTES PATIENT CURRENTLY RESTING IN BED. ALERT AND ORIENTED X 3. ABLE TO MAKE SIMPLE NEEDS KNOWN. ON 3L VIA NC WITH O2 SATS 93-95%. NO SIGNS OR SYMPTOMS OF RESPIRATORY DISTRESS NOTED. TELE MONITOR READING SINUS TACHY WITH BBB WITH HR 113. NO SIGNS OR SYMPTOMS OF DISTRESS NOTED. CLARK CATHETER INTACT AND PATENT DRAINING SAMMY COLORED URINE. CONTINUES ON IV NS @ 100ML/HR. CALL LIGHT WITHIN REACH. ASPIRATION, FALL AND SAFETY PRECAUTIONS MAINTAINED. WILL CONTINUE TO MONITOR.
[2020-11-05 20:00] VITALS: BP 136/71
--- NOTE | 2020-11-05 22:00 | NUR ---
RN NOTES PT REPORTED PAIN HOWEVER REFUSED PRN MED FOR PAIN PT WAS REPOSITIONED.WILL CONTINUE TO MONITOR.
[2020-11-06] MEDS: FUROSEMIDE 40 MG/4 ML VIAL IV SCH ×3 (01:30→17:03)
[2020-11-06] MEDS: HYDROCODONE/APAP 10/325MG TABLET PO PRN ×3 (02:41→22:00)
--- NOTE | 2020-11-06 02:41 | NUR ---
RN NOTES PT REPORTED PAIN PRN NORCO GIVEN AND TOLERATED WELL WILL CONTINUE TO MONITOR.
--- NOTE | 2020-11-06 06:31 | NUR ---
RN NOTES PATIENT CURRENTLY RESTING IN BED. ALERT AND ORIENTED X 3. ABLE TO MAKE SIMPLE NEEDS KNOWN. ON 5L VIA NC WITH O2 SATS 93-95%. NO SIGNS OR SYMPTOMS OF RESPIRATORY DISTRESS NOTED. TELE MONITOR READING SINUS TACHY WITH BBB WITH HR 113. NO SIGNS OR SYMPTOMS OF DISTRESS NOTED. CLARK CATHETER INTACT AND PATENT DRAINING SAMMY COLORED URINE. CONTINUES ON IV NS @ 100ML/HR. CALL LIGHT WITHIN REACH. ASPIRATION, FALL AND SAFETY PRECAUTIONS MAINTAINED. WILL ENDORSE CARE TO DAYSHIFT.
[2020-11-06 08:00] VITALS: BP 138/78
[2020-11-06] MEDS: VALSARTAN 80 MG TABLET PO SCH (08:19)
[2020-11-06] MEDS: METFORMIN 500 MG TABLET PO SCH ×2 (08:19→17:59)
[2020-11-06] MEDS: ASPIRIN EC 81 MG TABLET.DR PO SCH (08:19)
[2020-11-06] MEDS: ATORVASTATIN 10 MG TABLET PO SCH (08:20)
[2020-11-06] MEDS: HEPARIN SODIUM, PORCINE 5000 UNITS/1 ML VIAL SQ SCH ×2 (08:20→20:46)
[2020-11-06] MEDS: PANTOPRAZOLE 40 MG TABLET.DR PO SCH (08:20)
[2020-11-06] MEDS: ALLOPURINOL 100 MG TABLET PO SCH (08:20)
[2020-11-06] MEDS ORDERED: AMIODARONE 450 MG in IV D5W 250 ML IV PRN ×2 (09:00→10:30)
[2020-11-06 09:02] LABS: BASOPHILS % (AUTO) 0.4 % (0.0-2.0); EOSINOPHILS % (AUTO) 0.9 % (0.0-6.0); HEMATOCRIT 30 % (33-45); HEMOGLOBIN 9.8 g/dL (11.5-14.8); LYMPHOCYTES # (AUTO) 0.8 /CMM (0.8-4.8); LYMPHOCYTES % (AUTO) 8.5 % (20.0-44.0); MEAN CORPUSCULAR HGB CONC 32 g/dl (31.0-36.0); MEAN CORPUSCULAR VOLUME 100 fL (82-100); MONOCYTES # (AUTO) 0.9 /CMM (0.1-1.30); MONOCYTES % (AUTO) 9.3 % (2.0-12.0); NEUTROPHILS # (AUTO) 7.4 /CMM (1.8-8.9); NEUTROPHILS % (AUTO) 80.9 % (43.0-81.0); PLATELET COUNT (AUTO) 196 /CMM (150-450); RED BLOOD CELL COUNT(AUTO) 3.03 MIL/uL (4.0-5.2); WHITE BLOOD COUNT (AUTO) 9.2 K/uL (4.3-11.0)
[2020-11-06] MEDS: AMIODARONE 150 MG in IV D5W 100 ML IV ONE ×2 (09:06→09:39)
--- NOTE | 2020-11-06 09:39 | NUR ---
AWAITED FOR SHIELA NURSE TO ARRIVE. ONCE SHIELA NURSE ARRIVED STAFF NURSE, CHARGE NURSE AND SHIELA NURSE ENTERED ROOM TO BEGAN AMIODARONE INFUSION/ PUMP SET UP AND STARTED BY SHIELA NURSE STAFF NURSE INSTRUCTED ON HOW TO ACCESS VITALS Q HOUR AND WHAT TO REPORT TO DOCTOR IF NECESSARY. BOLUS STARTED AT 0939 AND COMPLETED 15 MINUTES AFTER. AMIODARONE TITRATE BEGAN AT 1000 ORDERED BY SHIELA NURSE. PUMP SETTINGS VERIFIED BY CHARGE NURSE AND SHIELA NURSE STAFF NURSE AT BEDSIDE TO DOCUMENT. MEDICATION INFUSING NO REACTION NOTED AT THIS TIME STAFF NURSE INSTRUCTED TO CONTINUE MONITORING.
[2020-11-06 10:37] LABS: ALBUMIN 2.4 g/dL (3.4-5.0); BILIRUBIN,TOTAL 0.9 mg/dL (0.2-1.0); CALCIUM, SERUM 9.4 mg/dL (8.5-10.1); CREATININE 1.1 mg/dL (0.6-1.3); MAGNESIUM 1.8 mg/dL (1.8-2.4); PHOSPHORUS 2.5 mg/dL (2.5-4.9); POTASSIUM 4.8 mmol/L (3.5-5.1); TOTAL PROTEIN, SERUM 6.7 g/dL (6.4-8.2)
[2020-11-06] MEDS: SOD FERRIC GLUC 125 MG in IV NS 0.9% 100 ML IV SCH (14:39)
--- NOTE | 2020-11-06 15:45 | NUR ---
TITRATION AMIODARONE STEADILY INFUSING RATE DECREASED TO HALF OF ORIGINAL RATE TO 0.5MG/MIN 16.6 ML/HR. NO ADVERSE SYMPTOMS NOTED AT THIS TIME. WILL CONTINUE TO MONITOR.
[2020-11-06 16:00] VITALS: BP 130/50
--- NOTE | 2020-11-06 17:41 | NUR ---
PT HR BEGAN TO TREND IN LOW 70S TO 60S. CHARGE NURSE VALERI NOTIFIED . ORDERED TO DC AMIODARONE.
--- NOTE | 2020-11-06 17:43 | NUR ---
dr. Sosa contacted about Hr SR 61 to 70 bpm, new order received to stop amiodarone drip.
--- NOTE | 2020-11-06 19:25 | NUR ---
PATIENT CARE TECHNICIAN OPENING NOTES: RECEIVED PATIENT IN BED, AWAKE, A/O X4. NO S/S OF DISTRESS NOTED. CALL LIGHT WITHIN REACH. BED ALARM ON. BED IN LOWEST AND LOCKED POSITION. NPO POST MN, PATIENT AWARE AND MACHINE TURNER MADE AWARE, SIGN POSTED.WITH CLARK CATHETER INTACT, DRAINING CLEAR YELLOW URINE OUTPUT.
[2020-11-06 20:45] VITALS: BP 146/71
[2020-11-07] VITALS (9 sets, daily range): BP systolic 99–152; BP diastolic 53–68
[2020-11-07 06:28] LABS: BASOPHILS % (AUTO) 0.4 % (0.0-2.0); EOSINOPHILS % (AUTO) 4.3 % (0.0-6.0); HEMATOCRIT 30 % (33-45); LYMPHOCYTES # (AUTO) 0.6 /CMM (0.8-4.8); LYMPHOCYTES % (AUTO) 8.4 % (20.0-44.0); MEAN CORPUSCULAR HGB CONC 33 g/dl (31.0-36.0); MEAN CORPUSCULAR VOLUME 98 fL (82-100); MONOCYTES # (AUTO) 0.8 /CMM (0.1-1.30); MONOCYTES % (AUTO) 10.2 % (2.0-12.0); NEUTROPHILS # (AUTO) 5.8 /CMM (1.8-8.9); NEUTROPHILS % (AUTO) 76.7 % (43.0-81.0); PLATELET COUNT (AUTO) 212 /CMM (150-450); RED BLOOD CELL COUNT(AUTO) 3.04 MIL/uL (4.0-5.2); WHITE BLOOD COUNT (AUTO) 7.6 K/uL (4.3-11.0)
[2020-11-07 06:43] LABS: ALBUMIN 2.4 g/dL (3.4-5.0); BILIRUBIN,TOTAL 1.1 mg/dL (0.2-1.0); CALCIUM, SERUM 9.2 mg/dL (8.5-10.1); CREATININE 1.1 mg/dL (0.6-1.3); MAGNESIUM 1.6 mg/dL (1.8-2.4); TOTAL PROTEIN, SERUM 6.7 g/dL (6.4-8.2)
--- NOTE | 2020-11-07 07:32 | NUR ---
DIRECTOR SPORTS NOTES PATIENT RECEIVED IN BED ALERT AND ORIENTED X 4, TONGAN SPEAKING ONLY. PATIENT ON 4 LITERS TITRATED TO 2 LITERS NASAL CANNULA, DENIES SOB, WITH EVEN NON-LABORED BREATHING, AND RESPIRATORY DISTRESS NOTED AT THIS TIME, SPO2 >95%. ON MEDICAL DATA ANALYST, SR 70'S. PATIENT DENIES PAIN AND DISCOMFORT AT THIS TIME. SKIN WARM AND DRY TO TOUCH. IV ACCESS INTACT AND PATENT. CLARK CATHETER INTACT AND PATENT DRAINING BY GRAVITY. PATIENT IS NPO DUE TO POSSIBLE SURGERY WILL AWAIT FOR MD. SAFETY PRECAUTIONS IMPLEMENTED WITH BED LOCKED, BILATERAL SIDE RAILS UP, BED ALARM ON, AND CALL LIGHT WITHIN EASY REACH. WILL CONTINUE TO MONITOR PATIENT.
[2020-11-07] MEDS: VALSARTAN 80 MG TABLET PO SCH (09:00)
[2020-11-07] MEDS: ASPIRIN EC 81 MG TABLET.DR PO SCH (09:00)
[2020-11-07] MEDS: ATORVASTATIN 10 MG TABLET PO SCH (09:00)
[2020-11-07] MEDS: HEPARIN SODIUM, PORCINE 5000 UNITS/1 ML VIAL SQ SCH (09:00)
[2020-11-07] MEDS: ALLOPURINOL 100 MG TABLET PO SCH (09:00)
[2020-11-07] MEDS: METFORMIN 500 MG TABLET PO SCH ×2 (09:00→16:00)
[2020-11-07] MEDS: PANTOPRAZOLE 40 MG TABLET.DR PO SCH (09:00)
--- NOTE | 2020-11-07 09:30 | NUR ---
PUBLIC WEIGHER NOTES HELD ALL MORNING PO/SCHEDULE MEDICATIONS DUE TO PATIENT AWAITING FOR SURGERY.
[2020-11-07] MEDS: Magnesium 1GM/D5W 100ML PREMIX 100 ML IV SCH ×2 (11:25→17:24)
[2020-11-07] MEDS ORDERED: BACITRACIN 50000 UNITS/VIAL ONE (11:34)
[2020-11-07] MEDS ORDERED: BUPIVACAINE 0.5 % PF 150 MG/30 ML VIAL ONE (11:34)
[2020-11-07] MEDS ORDERED: MIDAZOLAM HCL 2 MG/2ML VIAL ONE (11:46)
[2020-11-07] MEDS ORDERED: FENTANYL PF 250MCG/5ML AMPUL ONE (11:46)
[2020-11-07] MEDS ORDERED: ROCURONIUM BROMIDE 50 MG/5 ML ONE (11:47)
[2020-11-07] MEDS ORDERED: HYDROMORPHONE INJ 2 MG/ML DISP.SYRIN ONE (11:47)
[2020-11-07] MEDS ORDERED: FAMOTIDINE/PF INJ 20 MG/2 ML VIAL IV ONE (11:47)
--- NOTE | 2020-11-07 11:52 | NUR ---
MDS RN NOTES PATIENT LEFT UNIT FOR SURGERY VIA BED ACCOMPANIED BY OR NURSES.
[2020-11-07] MEDS ORDERED: TRANEXAMIC ACID 1,000 MG in IV NS 0.9% 100 ML IV ONE (12:30)
--- NOTE | 2020-11-07 15:00 | NUR ---
FISH ROE TECHNICIAN NOTES PATIENT RETURNED FROM SURGERY, OR NURSE GAVE REPORT AND ORDERS FROM DR. VILLAFUERTE. WILL CONTINUE TO MONITOR PATIENT.
[2020-11-07] MEDS: SOD FERRIC GLUC 125 MG in IV NS 0.9% 100 ML IV SCH (15:27)
[2020-11-07] MEDS: HYDROCODONE/APAP 10/325MG TABLET PO PRN ×2 (18:03→23:13)
--- NOTE | 2020-11-07 18:36 | NUR ---
HIM ANALYST NOTES PATIENT IN BED SLEEPING EASILY AWAKEN BY NAME ECUADOREAN SPEAKING ONLY. ON NASAL CANNULA 3 LITERS, SPO2 AT 96% PATIENT DENIES SOB, WITH EVEN NON-LABORED BREATHING, AND NO RESPIRATORY DISTRESS NOTED AT THIS TIME. ADMINISTERED NORCO ORDERED DUE TO PATIENT HAVING PAIN. ON SILK SCREEN PRINTER MACHINE SR 68. MET ALL OF PATIENTS NEEDS. SKIN KEPT CLEAN, WARM AND DRY TO TOUCH. IV ACCESS INTACT AND PATENT. SAFETY PRECAUTIONS IMPLEMENTED WITH BED LOCKED, BILATERAL SIDE RAILS UP, BED ALARM ON, BED IN THE LOWEST POSITION, AND CALL LIGHT WITHIN EASY REACH. WILL ENDORSE PLAN OF CARE TO UPCOMING RN.
--- NOTE | 2020-11-07 19:25 | NUR ---
AUTOPSY ASSISTANT CLOSING NOTES PATIENT AAOX4; ABLE TO MAKE SOME NEEDS KNOWN; TAIWANESE SPEAKING. ON O2 3LPM NASAL CANNULA; TOLERATING WELL WITH NO SOB. EXTERNAL TELE MONITOR READS SR WITH PVC AND BBB; AND HR AT 67. IV #22G S/L TO LAC PATENT AND INTACT. F/C DRAINING CLEAR YELLOW URINE; PATENT AND INTACT. ALL SAFETY MEASURES IN PLACE; BED IN LOWEST LOCKED POSITION; SIDERAILS UPX2; CALL LIGHT WITHIN REACH, BED ALARM ON. PATIENT MEDICALLY STABLE AT THIS TIME.
--- NOTE | 2020-11-07 19:40 | NUR ---
CORPORATION PILOT OPENING NOTES PATIENT AAOX4; ABLE TO MAKE SOME NEEDS KNOWN; AMERICAN SPEAKING. ON O2 3LPM NASAL CANNULA; TOLERATING WELL WITH NO SOB. EXTERNAL TELE MONITOR READS SR WITH PVC AND BBB; AND HR AT 67. IV #22G S/L TO LAC PATENT AND INTACT. F/C DRAINING CLEAR YELLOW URINE; PATENT AND INTACT. ALL SAFETY MEASURES IN PLACE; BED IN LOWEST LOCKED POSITION; SIDERAILS UPX2; CALL LIGHT WITHIN REACH, BED ALARM ON. PATIENT MEDICALLY STABLE AT THIS TIME.
[2020-11-07] MEDS: CEFAZOLIN 2 GM in IV D5W 100 ML IV SCH (21:42)
[2020-11-08] VITALS: BP 93/38
[2020-11-08 04:00] VITALS: BP 98/51
[2020-11-08] MEDS: CEFAZOLIN 2 GM in IV D5W 100 ML IV SCH (05:13)
[2020-11-08] MEDS: HYDROCODONE/APAP 10/325MG TABLET PO PRN ×4 (05:14→22:33)
[2020-11-08] MEDS ORDERED: IV NS 0.9% 1,000 ML IV PRN (05:30)
--- NOTE | 2020-11-08 06:46 | NUR ---
BROMINATION EQUIPMENT OPERATOR OPENING NOTES PATIENT AAOX4; ABLE TO MAKE SOME NEEDS KNOWN; TRINIDADIAN SPEAKING. ON O2 2LPM NASAL CANNULA; TOLERATING WELL WITH NO SOB. EXTERNAL TELE MONITOR READS SR WITH PVC AND BBB; AND HR AT 69. IV #22G S/L TO LAC PATENT AND INTACT; NS AT 75 ML/HR. F/C DRAINING CLEAR YELLOW URINE; PATENT AND INTACT. ALL SAFETY MEASURES IN PLACE; BED IN LOWEST LOCKED POSITION; SIDERAILS UPX2; CALL LIGHT WITHIN REACH, BED ALARM ON. PATIENT MEDICALLY STABLE AT THIS TIME.
--- NOTE | 2020-11-08 06:48 | NUR ---
RUGBY UNION FOOTBALLER CLOSING NOTES PATIENT AAOX4; ABLE TO MAKE SOME NEEDS KNOWN; CAMBODIAN SPEAKING. ON O2 2LPM NASAL CANNULA; TOLERATING WELL WITH NO SOB. EXTERNAL TELE MONITOR READS SR WITH PVC AND BBB; AND HR AT 69. IV #22G S/L TO LAC PATENT AND INTACT; NS AT 75 ML/HR. F/C DRAINING CLEAR YELLOW URINE; PATENT AND INTACT. ALL SAFETY MEASURES IN PLACE; BED IN LOWEST LOCKED POSITION; SIDERAILS UPX2; CALL LIGHT WITHIN REACH, BED ALARM ON. PATIENT MEDICALLY STABLE AT THIS TIME. WILL ENDORSE MAYO TO ONCOMING MORNING RN
[2020-11-08 06:59] LABS: BASOPHILS % (AUTO) 0.3 % (0.0-2.0); EOSINOPHILS % (AUTO) 1.9 % (0.0-6.0); HEMATOCRIT 25 % (33-45); HEMOGLOBIN 8.3 g/dL (11.5-14.8); LYMPHOCYTES # (AUTO) 0.7 /CMM (0.8-4.8); LYMPHOCYTES % (AUTO) 9.1 % (20.0-44.0); MEAN CORPUSCULAR HGB CONC 33 g/dl (31.0-36.0); MEAN CORPUSCULAR VOLUME 98 fL (82-100); MONOCYTES # (AUTO) 0.8 /CMM (0.1-1.30); MONOCYTES % (AUTO) 9.8 % (2.0-12.0); NEUTROPHILS # (AUTO) 6.4 /CMM (1.8-8.9); NEUTROPHILS % (AUTO) 78.9 % (43.0-81.0); PLATELET COUNT (AUTO) 195 /CMM (150-450); RED BLOOD CELL COUNT(AUTO) 2.55 MIL/uL (4.0-5.2); WHITE BLOOD COUNT (AUTO) 8.1 K/uL (4.3-11.0)
[2020-11-08 07:23] LABS: CALCIUM, SERUM 8.8 mg/dL (8.5-10.1); CARBON DIOXIDE 36 mmol/L (21-32); CHLORIDE 103 mmol/L (98-107); CREATININE 1.9 mg/dL (0.6-1.3); GLUCOSE 115 mg/dL (74-106); MAGNESIUM 2.3 mg/dL (1.8-2.4); PHOSPHORUS 3.5 mg/dL (2.5-4.9); POTASSIUM 3.8 mmol/L (3.5-5.1); SODIUM SERUM 138 mmol/L (136-145); UREA NITROGEN, BLOOD 35 mg/dL (7-18)
--- NOTE | 2020-11-08 07:46 | NUR ---
EXTRACTOR FILLER OPENING NOTES PATIENT AAOX4; ABLE TO MAKE SOME NEEDS KNOWN; MALDIVIAN SPEAKING. ON O2 2LPM NASAL CANNULA; TOLERATING WELL WITH NO SOB. EXTERNAL TELE MONITOR READS SR WITH PVC AND BBB; AND HR AT 69. IV #22G S/L TO LAC PATENT AND INTACT; NS AT 75 ML/HR. F/C DRAINING CLEAR YELLOW URINE; PATENT AND INTACT. ALL SAFETY MEASURES IN PLACE; BED IN LOWEST LOCKED POSITION; SIDERAILS UPX2; CALL LIGHT WITHIN REACH, BED ALARM ON.
[2020-11-08 08:00] VITALS: BP 106/47
[2020-11-08] MEDS: ASPIRIN EC 81 MG TABLET.DR PO SCH (08:57)
[2020-11-08] MEDS: METFORMIN 500 MG TABLET PO SCH (08:57)
[2020-11-08] MEDS: PANTOPRAZOLE 40 MG TABLET.DR PO SCH (08:57)
[2020-11-08] MEDS: ATORVASTATIN 10 MG TABLET PO SCH (08:57)
[2020-11-08] MEDS: ALLOPURINOL 100 MG TABLET PO SCH (08:57)
[2020-11-08] MEDS: VALSARTAN 80 MG TABLET PO SCH (09:00)
[2020-11-08] MEDS ORDERED: ENOXAPARIN SODIUM 40 MG/0.4 ML DISP.SYRIN SQ SCH (12:00)
--- NOTE | 2020-11-08 12:30 | NUR ---
RN NOTES PATIENT SEEN BY JACKLYN, PT, AND ABLE TO DO PT EVAL. ADA, DTR, AT BEDSIDE, AWARE.
[2020-11-08] MEDS: SOD FERRIC GLUC 125 MG in IV NS 0.9% 100 ML IV SCH (14:50)
[2020-11-08 16:00] VITALS: BP 118/53
--- NOTE | 2020-11-08 18:59 | NUR ---
STEWARD/STEWARDESS CLUB CAR CLOSING NOTES PATIENT RESTING IN BED, ABLE TO BE AWAKENED. A/O X3-4, ABLE TO MAKE SOME NEEDS KNOWN, ESTONIAN-SPEAKING. CONTINUE ON O2 AT 2LPM VIA NASAL CANNULA, NO RESPIRATORY DISTRESS. IV LINE ON LAC #22G PATENT AND INTACT. CLARK CATH INTACT DRAINING CLEAR YELLOW-COLORED URINE. URINE SPECIMEN OBTAINED FOR LABS. SAFETY MEASURES MAINTAINED. WILL ENDORSE TO FACING BASTER RN FOR MAYO.
--- NOTE | 2020-11-08 19:45 | NUR ---
MSRN AWAKE, SUDANESE SPEAKING. NO NEEDS OF THIS TIME. KEPT COMFORTABLE CLARK TO GRAVITY. TO CONTNINUE.
[2020-11-08 20:00] VITALS: BP 104/49
[2020-11-08 21:37] LABS: BILIRUBIN,URINE NEGATIVE (NEGATIVE); COLOR,URINE YELLOW (YELLOW); LEUKOCYTE ESTERASE ,URINE NEGATIVE (NEGATIVE); NITRITE, URINE NEGATIVE (NEGATIVE); PROTEIN,URINE TRACE mg/dl (NEGATIVE); UGLUCOSE NEGATIVE (NEGATIVE)
[2020-11-08 21:44] LABS: BACTERIA,URINE 1+ /HPF (None Seen); HYALINE CASTS, URINE Few /LPF (None Seen); MUCUS,URINE Few /LPF (None Seen); RBC,URINE 21-50 /HPF (0-2); SQUAMOUS EPITHELIAL CELL,UR 0-2 /HPF (None Seen)
[2020-11-08 21:52] LABS: CREATININE, URINE 120.7 MG/DL (30.0-125.0); URINE TOTAL PROTEIN 49.5 mg/dL (0-11.9)
[2020-11-08 22:10] LABS: EOSINOPHIL,URINE Few
--- NOTE | 2020-11-08 22:35 | NUR ---
RVivek FACIAL GRIMACE, APPEARS TO BE IN PAIN, SPOKE TO GRANDSONVIA PHONE FOR TRANSLATION, PATIENT WANTS PAIN MED. NORCO ES ADMINISTERED ORDERED. REPOSITIONED FOR COMFORT, ABDUCTOR PILLOW MAINTAINED. CLOSELY WATCHED.
[2020-11-09] MEDS: ACETAMINOPHEN 325 MG TABLET PO PRN ×2 (02:31→12:11)
[2020-11-09 06:45] LABS: BASOPHILS % (AUTO) 0.4 % (0.0-2.0); EOSINOPHILS % (AUTO) 2.8 % (0.0-6.0); HEMATOCRIT 27 % (33-45); HEMOGLOBIN 8.8 g/dL (11.5-14.8); LYMPHOCYTES # (AUTO) 0.9 /CMM (0.8-4.8); LYMPHOCYTES % (AUTO) 10.2 % (20.0-44.0); MEAN CORPUSCULAR HGB CONC 33 g/dl (31.0-36.0); MEAN CORPUSCULAR VOLUME 98 fL (82-100); MONOCYTES # (AUTO) 0.8 /CMM (0.1-1.30); MONOCYTES % (AUTO) 9.4 % (2.0-12.0); NEUTROPHILS # (AUTO) 6.7 /CMM (1.8-8.9); NEUTROPHILS % (AUTO) 77.2 % (43.0-81.0); PLATELET COUNT (AUTO) 224 /CMM (150-450); RED BLOOD CELL COUNT(AUTO) 2.73 MIL/uL (4.0-5.2); WHITE BLOOD COUNT (AUTO) 8.7 K/uL (4.3-11.0)
--- NOTE | 2020-11-09 06:56 | NUR ---
MSRN REPOSITIONED FOR COMFORT. SPOKE TO DAUGHTER, REGARDING PAIN MGT. TYLENOL 650 MG PO FOR NOW. NOT DUE FOR NORCO AT THIS TIME.
--- NOTE | 2020-11-09 06:58 | NUR ---
MSRN ASLEEP STILL AT THIS TIME.
[2020-11-09 07:28] LABS: ALANINE AMINOTRANSFERASE 41 U/L (12-78); ALKALINE PHOSPHATASE 169 U/L (46-116); ASPARTATE AMINOTRANSFERASE 79 U/L (15-37); BILIRUBIN,TOTAL 0.6 mg/dL (0.2-1.0); CALCIUM, SERUM 9.2 mg/dL (8.5-10.1); CREATININE 1.7 mg/dL (0.6-1.3); GLUCOSE 92 mg/dL (74-106); MAGNESIUM 2.1 mg/dL (1.8-2.4); PHOSPHORUS 3.9 mg/dL (2.5-4.9); TOTAL PROTEIN, SERUM 6.2 g/dL (6.4-8.2); UREA NITROGEN, BLOOD 41 mg/dL (7-18)
--- NOTE | 2020-11-09 07:35 | NUR ---
RN OPENING NOTES PATIENT RESTING IN BED, ABLE TO BE AWAKENED. A/O X3-4, LUXEMBOURGER-SPEAKING, ABLE TO MAKE SIMPLE NEEDS KNOWN. BREATHING EVEN AND UNLABORED, ON O2 AT 3LPM VIA NASAL CANNULA, NO SOB. IV LINE ON LAC #22G PATENT AND INTACT. CLARK CATH INTACT DRAINING CLEAR YELLOW-COLORED URINE. SAFETY MEASURES IN PLACE. WILL CONTINUE TO MONITOR.
[2020-11-09 08:00] VITALS: BP 108/45
[2020-11-09] MEDS: PANTOPRAZOLE 40 MG TABLET.DR PO SCH (08:27)
[2020-11-09] MEDS: ATORVASTATIN 10 MG TABLET PO SCH (08:27)
[2020-11-09] MEDS: ASPIRIN EC 81 MG TABLET.DR PO SCH (08:27)
[2020-11-09] MEDS: ALLOPURINOL 100 MG TABLET PO SCH (08:27)
[2020-11-09] MEDS: HYDROCODONE/APAP 10/325MG TABLET PO PRN ×2 (09:37→17:40)
[2020-11-09] MEDS ORDERED: ENOX40DI SQ (09:58)
[2020-11-09] MEDS ORDERED: Hydrocodone/Apap 10/325MG PO (09:58)
[2020-11-09 11:01] LABS: CARBON DIOXIDE 27 mmol/L (21-32); CHLORIDE 98 mmol/L (98-107); POTASSIUM 3.9 mmol/L (3.5-5.1); SODIUM SERUM 134 mmol/L (136-145)
[2020-11-09 16:00] VITALS: BP 108/64
--- NOTE | 2020-11-09 19:29 | NUR ---
RN NOTES PATIENT REPORT GIVEN TO PONCHO RN[facility].
--- NOTE | 2020-11-09 19:34 | NUR ---
INSPECTION CLERK NOTES PATIENT SEEN BY MD TODAY W/ ORDER FOR DISCHARGE TO [facility]; CLEARED BY ORTHO SURGEON FOR DISCHARGE WELL. DISCHARGE INSTRUCTIONS AND EDUCATION PROVIDED TO PATIENT/FAMILY AND RECEIVING RN AT [facility]. DISCHARGE FORM AND BELONGINGS LIST FORM SIGNED; ALL BELONGINGS ACCOUNTED FOR. IV LINE AND CLARK CATH REMOVED, PATIENT ABLE TO VOID USING BEDPAN. HIP PRECAUTIONS OBSERVED, WBAT PER ORTHO MD. BEDSIDE ENDORSEMENT DONE TO EMT. PATIENT PICKED UP VIA GURNEY. CHARGE NURSE AND MD AWARE OF DISCHARGE.
== END 2020-11-09 19:02 | DRG 521 ==
LOC: ER 21:25 → TELE 23:04 → MED 11-05 17:16 → TELE 11-06 08:24 → MED 11-08 11:32
PROVIDERS: ADMIT Registered Nurse; ATTEND Internal Medicine
PROC: 0SRR0JZ Replacement of Right Hip Joint, Femoral Surface with Synthetic Substitute, Open Approach (ICD-10-PCS; principal; 2020-11-07)
DX: S72.001A Fracture of unspecified part of neck of right femur, initial encounter for closed fracture (principal); N17.0 Acute kidney failure with tubular necrosis; I13.0 Hypertensive heart and chronic kidney disease with heart failure and stage 1 through stage 4 chronic kidney disease, or unspecified chronic kidney disease; W01.0XXA Fall on same level from slipping, tripping and stumbling without subsequent striking against object, initial encounter; Y92.000 Kitchen of unspecified non-institutional (private) residence as the place of occurrence of the external cause; I25.10 Atherosclerotic heart disease of native coronary artery without angina pectoris; E78.5 Hyperlipidemia, unspecified; Z79.84 Long term (current) use of oral hypoglycemic drugs; Z79.82 Long term (current) use of aspirin; Z79.899 Other long term (current) drug therapy; Z95.5 Presence of coronary angioplasty implant and graft; Z95.2 Presence of prosthetic heart valve; I48.91 Unspecified atrial fibrillation; M10.9 Gout, unspecified; E11.22 Type 2 diabetes mellitus with diabetic chronic kidney disease; D72.829 Elevated white blood cell count, unspecified; I50.9 Heart failure, unspecified; N18.9 Chronic kidney disease, unspecified; D64.9 Anemia, unspecified; I70.0 Atherosclerosis of aorta; K44.9 Diaphragmatic hernia without obstruction or gangrene; K57.30 Diverticulosis of large intestine without perforation or abscess without bleeding; E66.9 Obesity, unspecified; Z68.33 Body mass index [BMI] 33.0-33.9, adult; T50.2X5A Adverse effect of carbonic-anhydrase inhibitors, benzothiadiazides and other diuretics, initial encounter; Y92.9 Unspecified place or not applicable
CPT/HCPCS: 36415; 71045-TC; 72170-TC; 73502; 80048-TC; 80053-TC; 80061-TC; 81001; 82570-TC; 82728-TC; 82962-TC; 83540-TC; 83735-TC; 84100-TC; 84155-TC; 84300-TC; 84443-TC; 84484-TC; 85025-TC; 85610-TC; 86850-TC; 87081-TC; 93307-TC; 97110-TC; 97116-TC; 97530-TC; A6403; C9113; G0378; J0282; J0690; J1170; J1644; J1940; J2250; J2270; J2405; J2704; J2765; J2916; J3010; J3475; J3490; J7030; J7040; J7060